=== PATIENT | female | born 1970 | race Asian ===

== ENCOUNTER 2016-05-27 08:07 | Day surgery (SDC) | payer OTHER ==
[~2016-05-27 08:07] MED LIST: FENTANYL 250 MCG/5 ML AMP IV PRN; IV START KIT ONE; LACTATED RINGERS 1,000 ML IV SCH; LIDOCAINE Viscous 2% 15 ML UDCUP PO PRN; MIDAZOLAM HCL 5 MG/5 ML VIAL IV PRN
[2016-05-27] MEDS ORDERED: FENTANYL 100 MCG/2 ML VIAL ONE (08:45)
[2016-05-27 14:16] LABS: HELICOBACTER PYLORII DETECTION NEGATIVE (NEGATIVE)
--- NOTE | 2016-05-29 09:36 | SURGPATH ---
[facility] [address] [place] [id number] Patient Name: CUAUHTEMOC ARREDONDO MR#: [id number] : 1970 Gender: F Specimen #: [id number] Collected: 05/27/2016 Received: 05/28/2016 Reported: 05/29/2016 Submitting Phys: DONNA ZARCO Copy To Phys: [facility] AMIE FINCH Clinical History / Pre-Operative Diagnosis: ODYNOPHAGIA WITH DYSPHAGIA; CHEST PAIN; HEARTBURN; RULE OUT GIARDIA AND CELIAC SPRUE Specimen Source / Surgical Procedure Performed: #1-DUODENAL BIOPSY; #2-ANTRAL Interpretation: 1. DUODENUM, BIOPSY: - SMALL BOWEL MUCOSA WITH NO DIAGNOSTIC ABNORMALITY 2. STOMACH, ANTRUM, BIOPSY: - GASTRIC MUCOSA WITH NO DIAGNOSTIC ABNORMALITY Electronically Signed Out Anyi Matos M.D. Gross Description: #1 The specimen is received in a formalin filled container labeled with the patient's name and "duodenal biopsy". Two mireles biopsies are each 0.4 cm. Totally embedded in cassette #1. #2 The specimen is received in a formalin filled container labeled with the patient's name and "antral". A single mireles biopsy is 0.5 cm. Totally embedded in cassette #2. Praneeth Conway Microscopic Description: 1. Sections show fragments of small bowel mucosa with long and well preserved villous processes. There is no significant inflammation and lymphocytes are not increased within the epithelium. No infectious organisms are identified and there is no dysplasia. 2. Sections show fragments of gastric mucosa. There is normal mucosal architecture and no significant inflammation. No Helicobacter organisms are identified and there is no intestinal metaplasia or dysplasia. 1: 88775 2: 64053 R47.02
== END 2016-05-27 10:54 | disposition home or self-care (01) ==
LOC: SDC 08:07
PROVIDERS: ATTEND Internal Medicine Gastroenterology
PROC: 0DB98ZX Excision of Duodenum, Via Natural or Artificial Opening Endoscopic, Diagnostic (ICD-10-PCS; principal; 2016-05-27)
PROC: 0DB68ZX Excision of Stomach, Via Natural or Artificial Opening Endoscopic, Diagnostic (ICD-10-PCS; 2016-05-27)
PROC: 0WJP7ZZ Inspection of Gastrointestinal Tract, Via Natural or Artificial Opening Approach (ICD-10-PCS; 2016-05-27)
DX: K29.70 Gastritis, unspecified, without bleeding (principal); K29.80 Duodenitis without bleeding; K64.1 Second degree hemorrhoids; Z86.19 Personal history of other infectious and parasitic diseases; Z88.5 Allergy status to narcotic agent
CPT/HCPCS: 87081; 43239; 45990; J3010; J2250; A9270; J7120

== ENCOUNTER 2016-07-22 10:36 | Day surgery (SDC) | payer OTHER ==
[~2016-07-22 10:36] MED LIST changes: +BUPIVACAINE (LIPOSOMAL) PF 1.3% 20 ML VIAL IF ONE; +ERTAPENEM SODIUM 1 G in NS 0.9% (MINI-BAG PLUS) 50 ML IV PRN; -FENTANYL 250 MCG/5 ML AMP IV PRN; -LACTATED RINGERS 1,000 ML IV SCH; +LACTATED RINGERS 1,000 ML ONE; -LIDOCAINE Viscous 2% 15 ML UDCUP PO PRN; -MIDAZOLAM HCL 5 MG/5 ML VIAL IV PRN; +SULFANILAMIDE 15% CREAM 20 APPLIC/120 G TUBE ONE
[2016-07-22] MEDS ORDERED: PROPOFOL 20 ML IV ONE (11:15)
[2016-07-22] MEDS ORDERED: MIDAZOLAM HCL 1 MG/ML 2ML VIAL ONE (11:16)
[2016-07-22] MEDS ORDERED: FENTANYL 250 MCG/5 ML AMP ONE (11:16)
[2016-07-22] MEDS ORDERED: LACTATED RINGERS 1,000 ML IV SCH (12:00)
[2016-07-22] MEDS ORDERED: FENTANYL 100 MCG/2 ML VIAL IV PRN (12:00)
[2016-07-22] MEDS ORDERED: ATROPINE SULFATE 0.4 MG/1 ML VIAL IV PRN (12:00)
[2016-07-22] MEDS ORDERED: MEPERIDINE 25 MG/ML SYRINGE IV PRN (12:00)
[2016-07-22] MEDS ORDERED: HYDRALAZINE HCL 20 MG/1 ML VIAL IV PRN (12:00)
[2016-07-22] MEDS ORDERED: LABETALOL HCL 5 MG/ML 20ML VIAL IV PRN (12:00)
[2016-07-22] MEDS ORDERED: MORPHINE SULFATE 4 MG/ML SYRINGE IV PRN (12:00)
[2016-07-22] MEDS ORDERED: PROMETHAZINE HCL 25 MG/ML VIAL IM PRN (12:00)
[2016-07-22] MEDS ORDERED: NALOXONE HCL 0.4 MG/ML VIAL IV PRN (12:00)
[2016-07-22] MEDS ORDERED: ONDANSETRON 4 MG/2ML 2 ML VIAL IV PRN ×2 (12:00→15:04)
[2016-07-22] MEDS ORDERED: KETOROLAC TROMETHAMINE 30 MG/ML 1 ML VIAL ONE ×2 (12:30)
[2016-07-22] MEDS ORDERED: DEXAMETHASONE SOD PHOS 4 MG/1 ML VIAL ONE (12:30)
[2016-07-22] MEDS ORDERED: ONDANSETRON 4 MG/2ML 2 ML VIAL ONE ×2 (12:30→14:31)
[2016-07-22] MEDS ORDERED: ONDANSETRON 4 MG/2ML 2 ML VIAL IV ONE (15:03)
[2016-07-22] MEDS ORDERED: KETOROLAC TROMETHAMINE 30 MG/ML 1 ML VIAL IV PRN (15:04)
[2016-07-22] MEDS ORDERED: MORPHINE SULFATE 2 MG/ML SYRINGE IV PRN (15:04)
[2016-07-22] MEDS ORDERED: OXYCODONE HCL 5 MG TABLET PO PRN (15:04)
--- NOTE | 2016-07-22 20:54 | OP ---
CUAUHTEMOC ARREDONDO [id number] DATE OF OPERATION: July 22, 2016 PREOPERATIVE DIAGNOSIS: External anal mass, probable external hemorrhoid. POSTOPERATIVE DIAGNOSIS: External anal mass, probable external hemorrhoid. PROCEDURE: EXCISION OF EXTERNAL HEMORRHOID. SURGEON: Radames Schmitt M.D. ANESTHESIA: Haseeb Delaney C.R.N.A., general anesthesia. INDICATIONS: This is a 46-year-old female who has a palpable abnormality at the 3 o'clock position on the left perianal skin. She has some mild external hemorrhoidal swelling. This may be a small thrombosed hemorrhoid. We have elected to proceed with colonoscopy as well because of a significant change in her bowel habits. DESCRIPTION: With informed consent she is taken to the operating room where she is laid supine on the operating room table. General anesthesia is administered. The legs were placed in the candy cane stirrups. I performed a colonoscopy first. The details of this will be delineated in an endoscopy report. There were no apparent complications during that portion of the procedure. We then prepped and draped the perianal region in a sterile fashion. The palpable abnormality is at the 3 o'clock position on the perianal skin. I made an elliptical incision around this. I dissected down below the palpable abnormality. I used electrocautery to achieve hemostasis. This was excised and sent off to pathology. I was able to close the skin with subcuticular #4-0 Monocryl allowing some of the skin to be open to allow for drainage if it develops. I did inject some Exparel around this for postoperative pain control. She tolerated the procedure and was taken to the recovery room in stable condition. Note was made that needle, instrument and lap counts were reported as correct at time of closure. Cc: Nataly Sanchez M.D.
--- NOTE | 2016-07-24 15:13 | SURGPATH ---
[facility] [address] [place] [id number] Patient Name: CUAUHTEMOC ARREDONDO MR#: [id number] : 1970 Gender: F Specimen #: [id number] Collected: 07/22/2016 Received: 07/23/2016 Reported: 07/24/2016 Submitting Phys: VICTOR M ENGL[place] Copy To Phys: [facility] Clinical History / Pre-Operative Diagnosis: Hemorrhoids Specimen Source / Surgical Procedure Performed: #1 rectal polyp, #2 external hemorrhoid Interpretation: 1. RECTUM, POLYP, BIOPSY: - UNREMARKABLE COLONIC MUCOSA 2. EXTERNAL HEMORRHOID: - HYPERKERATOTIC AND HYPERPLASTIC SQUAMOUS MUCOSA Electronically Signed Out Phuc Martinez M.D. Gross Description: 1. The specimen is received in formalin labeled with the patient's name and "rectal polyp". The specimen consists of two 0.2-0.3 cm fragments of mireles soft tissue. Submitted in toto in one cassette. 2. The specimen is received in formalin labeled with the patient's name and "external hemorrhoids". The specimen consists of a 1.0 x 0.5 x 0.5 cm portion of mireles skin/mucosa and underlying soft tissue. The specimen was trisected and entirely submitted in one cassette. DESHAWN Hill Microscopic Description: 1. Levels reveal colonic mucosa with a normal glandular architecture. Ulceration, acute inflammation, crypt abscesses, granulomas, hyperplasia, dysplasia and malignancy are not seen. 2. Levels reveal mucosal tissue surfaced by hyperkeratotic and hyperplastic squamous epithelium. Viral atypia, dysplasia and malignancy are not present. The underlying fibrovascular stroma contains unremarkable vessels. 1: 67186 2: 89350 K64.9
== END 2016-07-22 14:58 | disposition home or self-care (01) ==
LOC: SDC 10:36
PROVIDERS: ATTEND Surgery
PROC: 0DBP8ZX Excision of Rectum, Via Natural or Artificial Opening Endoscopic, Diagnostic (ICD-10-PCS; principal; 2016-07-22)
PROC: 0DBQXZZ Excision of Anus, External Approach (ICD-10-PCS; 2016-07-22)
DX: K64.4 Residual hemorrhoidal skin tags (principal); D12.8 Benign neoplasm of rectum; K62.89 Other specified diseases of anus and rectum; E03.9 Hypothyroidism, unspecified; Z88.5 Allergy status to narcotic agent
CPT/HCPCS: 45380; 46230; J3010; J1100; J1885; J2250; J2405 ×2; J7120; J1335; C9290